=== PATIENT | male | born 1945 | race Caucasian/White ===

== ENCOUNTER → 2016-02-21 | Outpatient (CLI) | payer OTHER ==
[2015-08-22 14:11] VITALS: BP 137/83; PULSE 81
[~2016-02-21] MED LIST: BNC/20125 PO; EZET10TA38 PO; NXM/40 PO; TAMS0.4C38 PO
[2016-02-21 12:52] VITALS: BP 142/78; PULSE 75; TEMP 36.9; O2SAT 95
--- NOTE | 2016-02-21 16:14 | Radiation Oncology Follow-Up ---
Radiation Oncology Follow-Up Date of Visit Feb 21, 2016. Reason For Visit 6 month follow-up Radiation Completion Date Seed Implant 05/01/15, IMRT - 07/26/15 Diagnosis (1) Prostate cancer Status: Resolved Onset Date: 01/31/2015 Location: both lobe of the prostate Histology Subtype: adenocarcinoma Stage: ll (A biopsy stage) Permanent Comment: Rising PSA, pretreatment PSA 7.0 Status post ultrasound-guided biopsies 01/31/2015 [id number] [place] 3+3 and 3+4 Prostate volume 50.9 Prostate density 0.137 Hormone suppression Status post prostate seed implant 05/01/2015, 65 seeds were placed, 8500 cGy Status post IMRT/IGRT completed 07/26/2015 received 4500 cGy. Last Edited By: Naye Doll on Aug 03, 2015 11:38 History of Present Illness Dr. Hughes is a 69-year-old male without a family history of prostate cancer. He is been followed with prostate-specific antigens intermittently. In June 2009 prostate-specific antigen was 3.45. In April 2012 prostate-specific antigen was 4.5. In September 2014 prostate-specific antigen at increased to 5.85. This was repeated on 12/18/2014 and showed a further increase to 7.0 with a percent free prostate-specific antigen of 20. Because of the rise in prostate-specific antigen Dr. Romero discussed diagnostic options and the patient agreed to proceed with ultrasound-guided prostate biopsies. These were performed on 01/31/2015. A total of 14 biopsies were taken. This includes two each from the left and right base, left and right mid, left and right apex and one each from the left and right anterior gland. 2 of 2 biopsies from the left base were positive for adenocarcinoma [place] grade 3+4 involving 20% and 10% of the core specimens respectively with no perineural invasion seen. The Alia pattern 4 represented 5% of the cancer. 2 biopsies from the right base were benign. 2 of 2 biopsies in the left mid gland were positive for adenocarcinoma [place] grade 3+4 involving 12% and 54% respectively with no perineural invasion seen. The [place] pattern 4 represented 10% of the adenocarcinoma. One of 2 biopsies from the right mid gland were positive for adenocarcinoma Alia grade 3+3 with no perineural invasion seen. This was a minute focus of disease measuring less than 0.1 cm. 2 of 2 biopsies from the left apex were positive for adenocarcinoma [place] grade 3+4. This involved 25% of one core and less than 1 mm of a second core. The [place] pattern 4 represented 10% of the adenocarcinoma and no perineural invasion was seen. 0 of 2 biopsies were positive in the right apex. The biopsy from the left anterior gland revealed mild chronic prostatitis and high-grade PIN but no infiltrative carcinoma seen. The single biopsy from the right anterior was benign. Therefore a total of 7 of 14 biopsies were positive including 6 on the left and one on the right. 5 the biopsies displayed [place] grade 3+4 and 1 displayed a Alia grade of 3+ 3. Case: [id number]. Patient went on to have staging workup. A bone scan was performed on 2015. This showed scattered degenerative changes of the joints but no evidence of metastatic disease. A CT scan of the abdomen and pelvis also performed on February 16. This showed no evidence of metastatic disease within the abdomen or pelvis. A 3 mm left renal calculus was identified. A 5 mm right pelvic calcification was noted in the 7 mm hypodense right renal lesion was appreciated and was too small to characterize. The patient is scheduled to return to see Dr. Romero to discuss these surgical treatment options. We are asked to see the patient to discuss the radiation treatment options. It is for this reason the patient is being seen in referral. The decision was to treat with hormonal suppression followed by a prostate seed implant. He then underwent external beam radiation therapy. Interim History Over the past 6 months he has had some difficulty with loose stool and diarrhea. He was having 5-6 bowel movements per day. This is now somewhat improved at 3 bowel movements per day. He has urgency of bowel movements. He has occasional mild rectal bleeding. This happens approximately 3 times per week. He is not on aspirin or NSAIDs. He completed an AUA score sheet and gave a score of 2. He completed expanded prostate cancer index composite for clinical practice and gave a score of 0 12 and urinary incontinence symptoms. He gave a score of 0 12 and urinary irritation symptoms. He gave a score 7 of 12 bowel symptoms. He gave a score of 6 of 12 and sexual symptoms. He gave a score of 0 12 in hormonal vitality symptoms. His total was 13 of 60. He is not on any medication to help with urination. He had a recheck PSA at [facility] 08/22/2015 and that was 0.035. He had another PSA on 01/28/2016. That was 0.89. This was performed at [facility]. Allergies Coded Allergies: No Known Allergies (Unverified , 05/01/15) Home Medications Scheduled Esomeprazole Magnesium (Nexium), 40 MG PO QPM Ezetimibe/Simvastatin (Vytorin 10MG/20MG), 1 TAB PO QPM Olmesartan/Hctz (Benicar Hct 20/12.5), 1 TAB PO QPM Review of Systems Gastrointestinal: Symptoms: Diarrhea, Rectal Bleeding GI Comments: Diarrhea / Loose stools 3x/day- bloody stools over last few weeks Oral: Symptoms: No Problems Respiratory: Symptoms: WNL Urinary: Symptoms: Nocturia Comments: Nocturia x 1, See AUA & EPIC Skin: Symptoms: No Problems Physical Exam Vital Signs Date Time Temp Pulse Resp B/P Pulse Ox O2 Delivery O2 Flow Rate FiO2 02/21/16 12:52 36.9 75 16 142/78 95 Pain: Patient Pain Scale: 0 - 10 Initial Pain Intensity: 0.0 Fatigue: None General Appearance: no apparent distress Eyes: normal inspection, EOMI ENT: normal ENT inspection, hearing grossly normal Respiratory/Chest: lungs clear, no respiratory distress, no accessory muscle use Cardiovascular: regular rate, rhythm, no gallop, no murmur Abdomen: non tender, soft, no organomegaly Neurologic/Psychiatric: no motor/sensory deficits, alert, normal mood/affect Skin: warm/dry Lymphatic: no adenopathy Laboratory Studies PSA is as reviewed above. Assessment & Plan Plan: The patient is also seen today by Dr. Lua. I have recommended that he take Metamucil daily to help prevent loose stools and decreased bleeding. We discussed that he may be developing radiation proctitis. We reviewed modalities of treatment including cortisone enemas. A more severe circumstances patient may need argon laser therapy. At this time he does not feel his symptoms are that concerning. He is going to take the Metamucil as instructed. He'll call if he has any questions or concerns or need for further treatment. He should continue with PSAs every 6 months. He is going to have those [facility]. He'll be seeing Dr. Romero in May. We asked him to return to our office in 1 year. Total Time In Follow-Up I spent 20 minutes speaking to the patient and performing examination. I spent 15 minutes reviewing information and completing this note. Copy To Crissy Alves M.D.; Gabo Romero MD, Urology
== END | disposition home or self-care (01) ==
LOC: C.ONC 12:36
PROVIDERS: ATTEND Radiology Radiation Oncology
DX: Z08 Encounter for follow-up examination after completed treatment for malignant neoplasm (principal); Z92.3 Personal history of irradiation; Z85.46 Personal history of malignant neoplasm of prostate

== ENCOUNTER → 2017-02-26 | Outpatient (CLI) | payer OTHER ==
[~2017-02-26] MED LIST changes: +LOSA50TA54 PO; +SIMV20TA2 PO; -TAMS0.4C38 PO
[2017-02-26 13:06] VITALS: BP 147/82; PULSE 68; TEMP 36.5; O2SAT 98
--- NOTE | 2017-02-27 08:29 | Radiation Oncology Follow-Up ---
Radiation Oncology Follow-Up Date of Visit Feb 27, 2017. Reason For Visit Annual follow-up Radiation Completion Date Implant - 05/01/15, IMRT - 07/26/15 Diagnosis (1) Prostate cancer Status: Resolved Onset Date: 01/31/2015 Location: both lobes of the prostate Histology Subtype: adenocarcinoma Stage: ll (A biopsy stage) Permanent Comment: Rising PSA, pretreatment PSA 7.0 Status post ultrasound-guided biopsies 01/31/2015 [id number] Alia 3+3 and 3+4 Prostate volume 50.9 Prostate density 0.137 Hormone suppression Status post prostate seed implant 05/01/2015, 65 seeds were placed, 8500 cGy Status post IMRT/IGRT completed 07/26/2015 received 4500 cGy. Last Edited By: Naye Doll on Aug 03, 2015 11:38 History of [address]. Hughes is without a family history of prostate cancer. He is been followed with prostate-specific antigens intermittently. In June 2009 prostate-specific antigen was 3.45. In April 2012 prostate-specific antigen was 4.5. In September 2014 prostate-specific antigen at increased to 5.85. This was repeated on 12/18 and showed a further increase to 7.0 with a percent free prostate- specific antigen of 20. Because of the rise in prostate-specific antigen Dr. Romero discussed diagnostic options and the patient agreed to proceed with ultrasound-guided prostate biopsies. These were performed on 01/31/2015. A total of 14 biopsies were taken. This includes two each from the left and right base, left and right mid, left and right apex and one each from the left and right anterior gland. 2 of 2 biopsies from the left base were positive for adenocarcinoma [place] grade 3+4 involving 20% and 10% of the core specimens respectively with no perineural invasion seen. The [place] pattern 4 represented 5% of the cancer. 2 biopsies from the right base were benign. 2 of 2 biopsies in the left mid gland were positive for adenocarcinoma [place] grade 3+4 involving 12% and 54% respectively with no perineural invasion seen. The [place] pattern 4 represented 10% of the adenocarcinoma. One of 2 biopsies from the right mid gland were positive for adenocarcinoma Alia grade 3+3 with no perineural invasion seen. This was a minute focus of disease measuring less than 0.1 cm. 2 of 2 biopsies from the left apex were positive for adenocarcinoma Alia grade 3+4. This involved 25% of one core and less than 1 mm of a second core. The Alia pattern 4 represented 10% of the adenocarcinoma and no perineural invasion was seen. 0 of 2 biopsies were positive in the right apex. The biopsy from the left anterior gland revealed mild chronic prostatitis and high-grade PIN but no infiltrative carcinoma seen. The single biopsy from the right anterior was benign. Therefore a total of 7 of 14 biopsies were positive including 6 on the left and one on the right. 5 the biopsies displayed Alia grade 3+4 and 1 displayed a [place] grade of 3+ 3. Case: [id number]. Patient went on to have staging workup. A bone scan was performed on 2015. This showed scattered degenerative changes of the joints but no evidence of metastatic disease. A CT scan of the abdomen and pelvis also performed on February 16. This showed no evidence of metastatic disease within the abdomen or pelvis. A 3 mm left renal calculus was identified. A 5 mm right pelvic calcification was noted in the 7 mm hypodense right renal lesion was appreciated and was too small to characterize. The patient is scheduled to return to see Dr. Romero to discuss these surgical treatment options. We are asked to see the patient to discuss the radiation treatment options. It is for this reason the patient is being seen in referral. The decision was to treat with hormonal suppression followed by a prostate seed implant. He then underwent external beam radiation therapy. Interim History He has been stable from urinary standpoint. Today he gave an AUA score of 4. At his last visit he gave an AUA score of 2. He completed expanded prostate cancer index composite for clinical practice and gave a score of 0 of 12 and urinary incontinence symptoms. He gave a score of 2 of 12 urinary irritation symptoms. He gave a score of 6 of 12 bowel symptoms. He gave a score of 6 of 12 sexual symptoms. He gave a score of 0 of 12 and hormonal vitality symptoms. His total was 14 of 60. Following treatment he did have urgency of bowel movement. Head occasional small amount of bleeding. This has steadily improved. He has found that eating more fiber will help with this symptom. Allergies Coded Allergies: No Known Allergies (Unverified , 05/01/15) Home Medications Scheduled Esomeprazole Magnesium (Nexium), 40 MG PO QPM Losartan Potassium (Cozaar), 1 TAB PO DAILY Simvastatin (Zocor), 1 TAB PO HS Review of Systems Gastrointestinal: Symptoms: WNL GI Comments: Slight Diarrhea Oral: Symptoms: No Problems Respiratory: Symptoms: WNL Urinary: Symptoms: WNL, Nocturia Comments: Nocturia x 1, See AUA & EPIC Skin: Symptoms: No Problems Physical Exam Vital Signs Date Time Temp Pulse Resp B/P (MAP) Pulse Ox O2 Delivery O2 Flow Rate FiO2 02/26/17 13:06 36.5 68 18 147/82 98 Fatigue: None General Appearance: no apparent distress Eyes: normal inspection, EOMI ENT: normal ENT inspection, hearing grossly normal Neck: no adenopathy, thyroid normal Respiratory/Chest: lungs clear, no respiratory distress, no accessory muscle use Cardiovascular: regular rate, rhythm, no gallop, no murmur Abdomen: non tender, soft, no organomegaly Extremities: no pedal edema Neurologic/Psychiatric: no motor/sensory deficits, alert, normal mood/affect Skin: warm/dry Lymphatic: no adenopathy Pain Management Patient Reports Pain: No Pain Management Plan He has no pain therefore requires no pain management. Laboratory Laboratory Results: were reviewed, and pertinent findings noted below Laboratory Comments: He had a PSA at [facility] on 07/18/2016. That was 0.45. Pathology Pathology Results: not applicable Imaging Imaging Studies: not applicable Assessment & Plan Plan: The patient was also seen today by Dr. Bustamante. We discussed a recheck PSA. He is going to have this performed at [facility] noted have continuity of follow-up evaluations. An order was given. We discussed having the PSA checked every 6 months. He will continue to increase fiber in the diet to help with his bowel symptoms. He'll be seeing Dr. Romero in July with a recheck PSA prior to that visit. We asked him to return to our office in 1 year. He may call if he has any questions or concerns in the interim. Assessment & Plan (Attending) ADDENDUM: I agree with note created by Naye Doll PA-C. I reviewed the patient's chart and information with her. I have examined and evaluated the patient. I reviewed relevant clinical information and answered the patient's and /or family's questions. [employer] Total Time In Follow-Up I spent 20 minutes speaking to the patient performing examination. I spent 15 minutes reviewing information in completing this note. [place] Total Time (Attending) In Follow-Up I spent 15 minutes examining and counseling the patient. [employer] Copy To Crissy Alves M.D.; Gabo Romero MD, Urology
== END | disposition home or self-care (01) ==
LOC: C.ONC 12:51
PROVIDERS: ATTEND Physician Assistant Medical
DX: Z08 Encounter for follow-up examination after completed treatment for malignant neoplasm (principal); Z92.3 Personal history of irradiation; Z85.46 Personal history of malignant neoplasm of prostate